=== PATIENT | male | born 1995 | race African-American/Black ===

== ENCOUNTER 2024-04-06 13:08 | Emergency (ER) | payer SELFPAY ==
[~2024-04-06] VITALS: Ht 180.3 cm; Wt 96.6 kg
[2024-04-06 13:12] VITALS: TEMP 98.9; O2SAT 100
[2024-04-06] MEDS: CARBAMIDE PEROXIDE 6.5% OTIC SOLN 15ML EACH EAR ONE (14:28)
[2024-04-06] MEDS: ONDANSETRON 4MG ODT PO ONE (15:57)
[2024-04-06 15:58] VITALS: BP 114/57; PULSE 63; RESP 16; O2SAT 100
== END 2024-04-06 15:59 | disposition home or self-care (01) ==
LOC: ER 13:08
DX: H61.23 Impacted cerumen, bilateral (principal)
CPT/HCPCS: 99283; 69209; Q0162